=== PATIENT | female | born 1965 | race Hispanic/Latino ===

== ENCOUNTER 2019-12-29 22:28 | Emergency (ER) | payer OTHER ==
[~2019-12-29] VITALS: Ht 152.4 cm; Wt 95.7 kg
--- NOTE | 2019-12-29 23:29 | Diagnostic Imaging Report ---
X-ray bilateral knees 3 views of each knee (6 views) X-ray right tibia and fibula 2 views. X-ray right ankle 3 views HISTORY: Pain. Fall COMPARISON: None available. FINDINGS: Bilateral knees: No acute fracture or dislocation. No suprapatellar effusion. Right lower leg and right ankle: No acute fracture or dislocation. Ankle mortise is intact. No tibiotalar effusion. IMPRESSION: 1. No acute fracture or dislocation of the bilateral knees. 2. No acute fracture or dislocation of the right lower leg or ankle. Signed by: Tyson Hernandez MD on 12/29/2019 11:26 PM
--- NOTE | 2019-12-29 23:40 | Emergency Department Note ---
History of Present Illnes History of Present Illness Chief Complaint: Extremity Trauma/Pain History of Present Illness This is a 54 year old female states she slipped and fell on water near sink at nurses station. Patient states she fell on both knees. C/o left knee pain and right knee and gonzalez pain. Patient able to ambulate independently.. Historian: Patient Arrival Mode: Car Onset (how long ago): minute(s) (30) Location: bilateral knees Quality: pain Radiation: Reports non-radiation Severity: moderate Onset quality: sudden Duration (how long): hour(s) (20 minutes) Timing of current episode: constant Progression: unchanged Chronicity: new Context: Reports trauma/injury (as above) Exacerbating factors: movement Associated symptoms: Reports denies other symptoms Treatments prior to arrival: none Past Medical/Family History Physician Review I have reviewed the patient's past medical and family history. Any updates have been documented here. Past Medical History Recent Fever: No Clinical Suspicion of Infectio: No New/Unexplained Change in Ment: No Past Medical History: None Other Surgery: bladder suspension Social History Smoking Cessation: Never Smoker Counseling Performed: No Alcohol Use: None Any Illegal Drug Use: No Other Any Pre-Existing Lines (PICC,: No Review of Systems Review of Systems Constitutional: Reports no symptoms EENTM: Reports no symptoms Cardiovascular: Reports no symptoms Respiratory: Reports no symptoms Gastrointestinal: Reports no symptoms Genitourinary: Reports no symptoms Musculoskeletal: Reports as per HPI Integumentary: Reports no symptoms Neurological: Reports no symptoms Psychological: Reports no symptoms Endocrine: Reports no symptoms Hematological/Lymphatic: Reports no symptoms Physical Exam Related Data Allergies: Uncoded Allergies: PENICILLIN (Allergy, Unknown, 12/29/19) Triage Vital Signs Vital Signs Date Time Temp Pulse Resp B/P (MAP) Pulse Ox O2 Delivery O2 Flow Rate FiO2 12/29/19 22:33 98.9 92 20 128/69 99 Room Air Vital signs reviewed: Yes Physical Exam CONSTITUTIONAL Constitutional: Present well-developed, Present well-nourished HENT HENT: Present normocephalic, Present atraumatic, Present oropharynx clear/moist, Present nose normal HENT L/R: Present left ext ear normal, Present right ext ear normal EYES Eyes: Reports PERRL, Reports conjunctivae normal NECK Neck: Present ROM normal PULMONARY Pulmonary: Present effort normal, Present breath sounds normal CARDIOVASCULAR Cardiovascular: Present regular rhythm, Present heart sounds normal, Present capillary refill normal, Present normal rate GASTROINTESTINAL Abdominal: Present soft, Present nontender, Present bowel sounds normal GENITOURINARY Genitourinary: Present exam deferred SKIN Skin: Present warm, Present dry MUSCULOSKELETAL pt with mild pain with rom of bilateral knees, state pain in right knee radiates to right ankle, pt walks with steady gait and does not limp, pulses intact NEUROLOGICAL Neurological: Present alert, Present oriented x 3, Present no gross motor or sensory deficits PSYCHOLOGICAL Psychological: Present mood/affect normal, Present judgement normal Results Imaging Imaging results reviewed: Yes Impressions Procedure: [id number] DX/LOWER LEG RIGHT Exam Date: 12/29/19 Exam Time: 2258 REPORT STATUS: Signed X-ray bilateral knees 3 views of each knee (6 views) X-ray right tibia and fibula 2 views. X-ray right ankle 3 views HISTORY: Pain. Fall COMPARISON: None available. FINDINGS: Bilateral knees: No acute fracture or dislocation. No suprapatellar effusion. Right lower leg and right ankle: No acute fracture or dislocation. Ankle mortise is intact. No tibiotalar effusion. IMPRESSION: 1. No acute fracture or dislocation of the bilateral knees. 2. No acute fracture or dislocation of the right lower leg or ankle. Signed by: Annita Doyle MD on 12/29/2019 11:26 PM Dictated By: ANNITA DOYLE MD 25 Transcribed By: RE on 12/29/192325 COPY TO: SIDDHARTH REBOLLEDO MD~ Assessment & Plan Medical Decision Making MDM pt with bilateral knee, and right lower leg pain s/p fall xrays ordered to [facility] for fracture Assessment & Plan Final Impression: (1) Contusion of knee, left (2) Contusion of knee, right Depart Disposition: HOME, SELF-CARE Last Vital Signs Date Time Temp Pulse Resp B/P (MAP) Pulse Ox O2 Delivery O2 Flow Rate FiO2 12/29/19 22:45 98.9 77 20 105/86 100 Room Air SIDDHARTH REBOLLEDO MD Dec 29, 2019 23:40
[2019-12-29 23:44] VITALS: BP 116/58
--- OUTSIDE RECORDS SUMMARY | 2019-12-30 00:13 | XMS REPORT | Continuity of Care Document ---
Author Author [facility] t Organization [facility] Address [address] [place] [address] Phone Unavailable Care Team Providers Care Cell Attendant Helper Name Role Phone Yosi REBOLLEDO Attphyxena Unavailable Problems This patient has no known problems. Allergies, Adverse Reactions, Alerts This patient has no known allergies or adverse reactions. Medications This patient has no known medications. Procedures This patient has no known procedures. Results Test Description Test Time Test Comments Results Result Comments Source LOWER LEG RIGHT 2019-12-29 23:20:00 [facility] 1965 Sex: F [place] [address] Patient Name: ZANE WILHELM MR #: [id number] : 1965 Age/Sex: 54/F Req #: [id number] [facility] Physician: Ordered by: SIDDHARTH REBOLLEDO MD Report #: [id number] Location: ER Room/Bed: Procedure: [id number] DX/LOWER LEG RIGHT Exam Date: 12/29/19 Exam Time: 225 REPORT STATUS: Signed X-ray bilateral knees 3 views of each knee (6 views) X-ray right tibia and fibula 2 views. X-ray right ankle 3 views HISTORY: Pain. Fall COMPARISON: None available. FINDINGS: Bilateral knees: No acute fracture or dislocation. No suprapatellar effusion. Right lower leg and right ankle: No acute fracture or dislocation. Ankle mortise is intact. No tibiotalar effusion. IMPRESSION: 1. No acute fracture or dislocation of the bilateral knees. 2. No acute fracture or dislocation of the right lower leg or ankle. Signed by: Annita Doyle MD on 12/29/2019 11:26 PM Dictated By: ANNITA DOYLE MD [facility] Signed By: ANNITA DOYLE MD on 12/29/192325 Transcribed By: RE on 12/29/192325 COPY TO: SIDDHARTH REBOLLEDO MD ANKLE 3 + VIEWS RIGHT 2019-12-29 23:20:00 [facility] : 1965 Sex: F [place] [address] Patient Name: ZANE WILHELM MR #: [id number] : 1965 Age/Sex: 54/F Req #: [id number] [facility] Physician: Ordered by: SIDDHARTH REBOLLEDO MD Report #: [id number] Location: Room/Bed: Procedure: [id number] DX/ANKLE 3 + VIEWS RIGHT Exam Date: 12/29/19 Exam Time: 2258 REPORT STATUS: Signed X-ray bilateral knees 3 views of each knee (6 views) X-ray right tibia and fibula 2 views. X-ray right ankle 3 views HISTORY: Pain. Fall COMPARISON: None available. FINDINGS: Bilateral knees: No acute fracture or dislocation. No suprapatellar effusion. Right lower leg and right ankle: No acute fracture or dislocation. Ankle mortise is intact. No tibiotalar effusion. IMPRESSION: 1. No acute fracture or dislocation of the bilateral knees. 2. No acute fracture or dislocation of the right lower leg or ankle. Signed by: Annita Doyle MD on 12/29/2019 11:26 PM Dictated By: ANNITA DOYLE MD [facility] [employer] Signed By: ANNITA DOYLE MD on 12/29/192325 Transcribed By: RE on 12/29/192325 COPY TO: SIDDHARTH REBOLLEDO MD KNEE THREE VIEWS BILATERAL 2019-12-29 23:20:00 [facility] : 1965 Sex: F [address] [place], [place] [address] Patient Name: ZANE WILHELM MR #: [id number] : 1965 Age/Sex: 54/F Req #: [id number] Adm Physician: Ordered by: SIDDHARTH REBOLLEDO MD Report #: [id number] Location: ER Room/Bed: Procedure: [id number] DX/KNEE THREE VIEWS BILATERAL Exam Date: 12/29/19 Exam Time: 2259 REPORT STATUS: Signed X-ray bilateral knees 3 views of each knee (6 views) X-ray right tibia and fibula 2 views. X-ray right ankle 3 views HISTORY: Pain. Fall COMPARISON: None available. FINDINGS: Bilateral knees: No acute fracture or dislocation. No suprapatellar effusion. Right lower leg and right ankle: No acute fracture or dislocation. Ankle mortise is intact. No tibiotalar effusion. IMPRESSION: 1. No acute fracture or dislocation of the bilateral knees. 2. No acute fracture or dislocation of the right lower leg or ankle. Signed by: Annita Doyle MD on 12/29/2019 11:26 PM Dictated By: ANNITA DOYLE MD 25 Transcribed By: RE on 12/29/192325 COPY TO: SIDDHARTH REBOLLEDO MD
== END 2019-12-29 23:51 | disposition home or self-care (01) ==
LOC: ER 22:34
DX: S80.02XA Contusion of left knee, initial encounter (principal); S80.01XA Contusion of right knee, initial encounter; W01.0XXA Fall on same level from slipping, tripping and stumbling without subsequent striking against object, initial encounter; Y93.01 Activity, walking, marching and hiking; Y99.0 Civilian activity done for income or pay
CPT/HCPCS: 99283